=== PATIENT | male | born 1990 | race Two or more races ===

== ENCOUNTER 2023-02-25 09:32 | Emergency (ER) | payer OTHER ==
[~2023-02-25] VITALS: Ht 185.4 cm; Wt 79.4 kg
--- NOTE | 2023-02-25 09:41 | NUR ---
TO ER BED 13. [id number] FROM [facility], PER PD PATIENTS MAKING STATEMENTS "HE WOULD HARM OTHERS" PATIENT DENIES "HI" STATES OFF OF HIS APRAZOLAM. PT VITALS ARE WITHIN NORMAL LIMITS. SAFETY PRECAUTIONS APPLIED, SITTER AT BEDSIDE. PERSON BELONGING GIVEN TO PT'S GIRLFRIEND, SHE, PER PT REQUEST. AWAITING MD ZARATE.
[2023-02-25 09:45] VITALS: BP 119/75
--- NOTE | 2023-02-25 09:51 | NUR ---
COVID TEST COLLECTED AND SENT
--- NOTE | 2023-02-25 09:51 | NUR ---
URINAL PROVIDED TO PT
--- NOTE | 2023-02-25 10:13 | NUR ---
SHE (GIRLFRIEND) [phone] AVAILABLE TO [employer] PT
[2023-02-25 11:59] LABS: BASOPHILS # (AUTO) 0.1 K/uL (0.0-0.2); BASOPHILS % (AUTO) 0.9 % (0.0-2.0); HEMATOCRIT 41 % (39-51); HEMOGLOBIN 13.6 g/dL (13.5-17.5); LYMPHOCYTES # (AUTO) 1.5 K/uL (0.8-4.8); LYMPHOCYTES % (AUTO) 10.5 % (20.0-44.0); MEAN CORPUSCULAR HGB CONC 34 g/dl (31.0-36.0); MEAN CORPUSCULAR VOLUME 91 fL (80-96); MONOCYTES # (AUTO) 1.3 K/uL (0.1-1.30); NEUTROPHILS # (AUTO) 11.4 K/uL (1.8-8.9); NEUTROPHILS % (AUTO) 79.6 % (43.0-81.0); PLATELET COUNT (AUTO) 275 K/uL (150-450); RED BLOOD CELL COUNT(AUTO) 4.49 MIL/uL (4.5-6.0); WHITE BLOOD COUNT (AUTO) 14.3 K/uL (4.3-11.0)
[2023-02-25 12:09] LABS: CALCIUM, SERUM 9.1 mg/dL (8.5-10.1); CARBON DIOXIDE 27 mmol/L (21-32); CHLORIDE 102 mmol/L (98-107); CREATININE 1.3 mg/dL (0.6-1.3); GLUCOSE 94 mg/dL (74-106); SODIUM SERUM 140 mmol/L (136-145); UREA NITROGEN, BLOOD 15 mg/dL (7-18)
[2023-02-25 12:22] LABS: POTASSIUM 2.8 mmol/L (3.5-5.1)
[2023-02-25 12:25] LABS: ACETAMINOPHEN < 10 ug/ml (10-30); ALCOHOL, BLOOD < 3 mg/dL (0-0)
[2023-02-25 12:29] LABS: ALANINE AMINOTRANSFERASE 21 U/L (12-78); ALBUMIN 4.4 g/dL (3.4-5.0); ALKALINE PHOSPHATASE 62 U/L (46-116); ASPARTATE AMINOTRANSFERASE 64 U/L (15-37); BILIRUBIN,DIRECT 0.2 mg/dL (0.0-0.2); BILIRUBIN,TOTAL 0.7 mg/dL (0.2-1.0); TOTAL PROTEIN, SERUM 7.8 g/dL (6.4-8.2)
[2023-02-25] MEDS ORDERED: POTASSIUM CHLORIDE 20 MEQ TAB.PRT.SR PO ONE ×2 (12:30→12:59)
--- NOTE | 2023-02-25 13:28 | NUR ---
URINE COLLECTED AND SENT
[2023-02-25] MEDS ORDERED: OLANZAPINE 10 MG VIAL IM ONE ×2 (14:00→14:21)
[2023-02-25 14:18] LABS: BILIRUBIN,URINE Negative (NEGATIVE); COLOR,URINE YELLOW (YELLOW); LEUKOCYTE ESTERASE ,URINE Negative (NEGATIVE); NITRITE, URINE Negative (NEGATIVE); PROTEIN,URINE 100 mg/dl (NEGATIVE); UGLUCOSE Negative (NEGATIVE); UROBILINOGEN,URINE 0.2 EU/dL (0.2)
[2023-02-25 14:26] LABS: BACTERIA,URINE Many /HPF (None Seen); SQUAMOUS EPITHELIAL CELL,UR Few /HPF (None Seen)
[2023-02-25] MEDS ORDERED: LORAZEPAM INJ 2 MG/ML VIAL IM ONE (15:30)
[2023-02-25] MEDS ORDERED: HALOPERIDOL LACTATE INJ 5 MG/ML VIAL IM ONE (15:30)
[2023-02-25] MEDS ORDERED: diphenhydrAMINE HCL 50 MG/ML VIAL IM ONE (15:30)
--- NOTE | 2023-02-25 15:49 | NUR ---
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
--- NOTE | 2023-02-25 18:00 | NUR ---
[facility] RESPONDED TO CALL, WAS ABLE TO GET IN TOUCH OF PATIENTS GIRLFRIEND. WAS TOLD THAT THEY WILL NOT PURSUE PATIENT SINCE GIRLFRIEND WILL NOT TELL THEM PATIENTS LOCATION.
== END 2023-02-25 16:53 | disposition left against medical advice (07) ==
LOC: ER 09:51
DX: F23 Brief psychotic disorder (principal); E87.6 Hypokalemia; Z20.822 Contact with and (suspected) exposure to COVID-19; Z88.1 Allergy status to other antibiotic agents
CPT/HCPCS: 99285; 96372; 85025; 80048; 87086; 80076; 81001; 36415; 87426; 80143; 80320; 80307; J3490; C9803; G0480